=== PATIENT | male | born 1935 | race African-American/Black ===

== ENCOUNTER 2018-02-05 08:26 | Emergency (ER) | payer MEDICARE ==
[~2018-02-05] VITALS: Ht 180.3 cm; Wt 80.0 kg
[~2018-02-05 08:26] MED LIST: AMLO5TAB88 PO; BUPR100T6 PO; CLOP75TA33 PO; DULO30CA2 PO; GABA-531 PO; LOSA1TAB37 PO; MORP60TA6 PO; OXYC-100 PO; POTA20TA12 PO; ZINC SULFATE PO
[2018-02-05 09:17] LABS: BASOPHILS % 1.1 % (0.0-2.0); EOSINOPHILS % 6.8 % (0.0-5.0); HEMATOCRIT. 39.5 % (42.0-52.0); HEMOGLOBIN. 13.3 g/dL (14.0-18.0); LYMPHOCYTES % 21.9 % (20.0-50.0); MEAN CORPUSCULAR HEMOGLOBIN 30.1 pg (28.0-32.0); MEAN CORPUSCULAR VOLUME 89.8 fL (80.0-94.0); MEAN PLATELET VOLUME 7.5 fl (7.4-10.4); MONOCYTES % 6.3 % (2.0-8.0); NEUTROPHILS % 63.9 % (40.0-76.0); PLATELET 251 x1000/uL (130-400); RED CELL DISTRIBUTION WIDTH 18.6 % (11.6-14.6)
[2018-02-05 09:22] LABS: CHLORIDE 105 mEq/L (98-107)
[2018-02-05 09:23] LABS: INR 1.2; PROTHROMBIN TIME 12.4 sec (9.4-11.6)
[2018-02-05] MEDS ORDERED: FUROSEMIDE 40MG/4ML VIAL IVP ONE (10:15)
[2018-02-05 10:42] VITALS: BP 132/69
== END 2018-02-05 10:47 | disposition home or self-care (01) ==
LOC: ER 09:30
DX: E87.70 Fluid overload, unspecified (principal); N28.9 Disorder of kidney and ureter, unspecified; I25.10 Atherosclerotic heart disease of native coronary artery without angina pectoris; I10 Essential (primary) hypertension; Z87.891 Personal history of nicotine dependence; Z89.611 Acquired absence of right leg above knee; Z95.0 Presence of cardiac pacemaker; Z98.890 Other specified postprocedural states
CPT/HCPCS: 36415; 71045; 80053; 83605; 83690; 83880; 84484; 85025; 85610; 93005; 96374; 99285; J1940

== ENCOUNTER 2018-10-17 09:21 | Inpatient (IN) | payer MEDICARE, OTHER ==
[~2018-10-17] VITALS: Ht 180.3 cm; Wt 72.6 kg
[2018-10-17] MEDS ORDERED: METHYLPREDNISOLONE SOD SUCC 125 MG/2 ML VIAL IV STA (11:03)
[2018-10-17] MEDS ORDERED: SODIUM CHLORIDE 0.9% 1,000 ML IV ONE (11:03)
[2018-10-17] MEDS ORDERED: KETOROLAC 30MG/ML VIAL IV STA (11:03)
[2018-10-17] MEDS ORDERED: ONDANSETRON HCL 4MG/2ML INJ IV STA (11:03)
[2018-10-17] MEDS ORDERED: IPRATROPIUM/ALBUTEROL 0.5-3(2.5)MG/3ML NEB HHN ONE (11:15)
[2018-10-17] MEDS ORDERED: MORPHINE SULFATE 10 MG/ML CPJ IV ONE (11:15)
[2018-10-17] MEDS ORDERED: MAGNESIUM 2 G PREMIX 50 ML IV ONE (11:15)
[2018-10-17] MEDS ORDERED: LEVOFLOXACIN 750MG PREMIX 150 ML IV ONE (11:15)
[2018-10-17 12:24] LABS: BASOPHILS % 1.1 % (0.0-2.0); HEMATOCRIT. 42.6 % (42.0-52.0); HEMOGLOBIN. 14.2 g/dL (14.0-18.0); LYMPHOCYTES % 17.7 % (20.0-50.0); MEAN CORPUSCULAR VOLUME 90.1 fL (80.0-94.0); MEAN PLATELET VOLUME 8.5 fl (7.4-10.4); MONOCYTES % 10.8 % (2.0-8.0); NEUTROPHILS % 65.4 % (40.0-76.0); PLATELET 174 x1000/uL (130-400); RED BLOOD CELL COUNT 4.73 mill/uL (4.7-6.1); RED CELL DISTRIBUTION WIDTH 16.6 % (11.6-14.6)
[2018-10-17 12:27] LABS: CHLORIDE 107 mEq/L (98-107)
[2018-10-17 12:30] LABS: ETHANOL BLOOD < 10 mg/dL
[2018-10-17 12:46] LABS: D-DIMER 4.26 mg/L FEU (<0.50); INR 1.2; PARTIAL THROMBOPLASTIN TIME 32.3 sec (23.4-31.0); PROTHROMBIN TIME 11.6 sec (9.1-11.1)
[2018-10-17 13:02] LABS: CLARITY URINE CLEAR (CLEAR); COLOR URINE YELLOW (YELLOW); KETONES URINE NEGATIVE (NEGATIVE); LEUKOCYTE ESTERASE URINE NEGATIVE (NEGATIVE); NITRITE URINE NEGATIVE (NEGATIVE); OCCULT BLOOD URINE 1+ (NEGATIVE); PROTEIN URINE 1+ (NEGATIVE); SPECIFIC GRAVITY URINE 1.011 (1.005-1.030)
[2018-10-17 14:06] LABS: *AMPHETAMINES SCREEN URINE NEGATIVE (NEGATIVE)
[2018-10-17 14:07] LABS: *BARBITURATES SCREEN URINE NEGATIVE (NEGATIVE); *COCAINE SCREEN URINE NEGATIVE (NEGATIVE); CANNABINOID URINE SCREEN NEGATIVE (NEGATIVE); METHADONE URINE SCREEN NEGATIVE (NEGATIVE); OPIATES URINE SCREEN NEGATIVE (NEGATIVE); PHENCYCLIDINE URINE SCREEN NEGATIVE (NEGATIVE)
[2018-10-17 14:08] LABS: *BENZODIAZEPINES SCREEN URINE NEGATIVE (NEGATIVE)
[2018-10-17] MEDS ORDERED: IOHEXOL-350 100 ML BOTTLE ONE (16:45)
[2018-10-17] MEDS ORDERED: GUAIFENESIN/CODEINE 200-20MG/10ML UDC PO STA (18:41)
[2018-10-17 20:00] VITALS: BP 142/90
[2018-10-17] MEDS ORDERED: DIATR MEGLU/DIATRIZOATE SOLN 30ML PO SCH (20:15)
[2018-10-17 20:30] VITALS: BP 142/90
[2018-10-17] MEDS: LOSARTAN POTASSIUM 100 MG TABLET PO SCH (21:22)
[2018-10-17] MEDS ORDERED: LEVOFLOXACIN 500MG PREMIX 100 ML IV NR (21:30)
[2018-10-17] MEDS ORDERED: BENZONATATE 200MG CAPSULE PO SCH (22:00)
[2018-10-17] MEDS: BENZONATATE 200MG CAPSULE PO SCH (23:20)
[2018-10-17] MEDS: IPRATROPIUM/ALBUTEROL 0.5-3(2.5)MG/3ML NEB HHN SCH (23:49)
[2018-10-18] VITALS: BP 139/71
[2018-10-18] MEDS: IPRATROPIUM/ALBUTEROL 0.5-3(2.5)MG/3ML NEB HHN SCH ×5 (03:12→19:45)
[2018-10-18 04:00] VITALS: BP 121/72
[2018-10-18] MEDS: GUAIFENESIN/CODEINE 100-10MG/5ML UDC PO PRN (05:27)
[2018-10-18] MEDS: BENZONATATE 200MG CAPSULE PO SCH ×3 (05:28→22:35)
[2018-10-18 08:10] VITALS: BP 112/66
[2018-10-18] MEDS: FUROSEMIDE 40MG/4ML VIAL IVP SCH (09:00)
[2018-10-18] MEDS ORDERED: DIATR MEGLU/DIATRIZOATE SOLN 30ML PO NR (09:00)
[2018-10-18] MEDS: CLOPIDOGREL 75MG TABLET PO SCH (09:00)
[2018-10-18] MEDS: GABAPENTIN 300MG CAPSULE PO SCH ×2 (09:00→16:34)
[2018-10-18] MEDS: POTASSIUM CHLORIDE 20MEQ TABLET SR PO SCH (09:00)
[2018-10-18] MEDS: AMLODIPINE 5MG TABLET PO SCH (09:00)
[2018-10-18] MEDS ORDERED: AMLODIPINE 5MG TABLET PO SCH (09:00)
[2018-10-18] MEDS ORDERED: BUPROPION HCL 75 MG PO SCH (09:00)
[2018-10-18] MEDS ORDERED: CLOPIDOGREL 75MG TABLET PO SCH (09:00)
[2018-10-18] MEDS: BUPROPION HCL 100MG SR TABLET PO SCH (09:00)
[2018-10-18] MEDS: LOSARTAN POTASSIUM 100 MG TABLET PO SCH (09:00)
[2018-10-18] MEDS: HYDROCHLOROTHIAZIDE 25MG TABLET PO SCH (09:00)
[2018-10-18] MEDS ORDERED: GABAPENTIN 100MG CAPSULE PO SCH (09:00)
[2018-10-18] MEDS ORDERED: BUPROPION HCL 100MG SR TABLET PO SCH (09:00)
[2018-10-18] MEDS: ENOXAPARIN 40MG/0.4ML SYR SUBCUT SCH (09:00)
[2018-10-18] MEDS: DULOXETINE HCL 30MG DR CAPSULE PO SCH (09:00)
[2018-10-18] MEDS ORDERED: MORPHINE SULFATE 15MG TABLET SR PO SCH (09:15)
[2018-10-18] MEDS ORDERED: ACETAMINOPHEN 325MG TABLET PO PRN (09:15)
[2018-10-18 12:00] VITALS: BP 136/84
[2018-10-18] MEDS ORDERED: IOHEXOL-300 100 ML BOTTLE ONE (14:47)
[2018-10-18 16:00] VITALS: BP 134/75
[2018-10-18 20:00] VITALS: BP 129/73
[2018-10-18] MEDS: LEVOFLOXACIN 250MG PREMIX 50 ML IV SCH (21:44)
[2018-10-18] MEDS: MORPHINE SULFATE 30MG TABLET SR PO SCH (22:35)
[2018-10-19] VITALS: BP 143/92
[2018-10-19] MEDS: IPRATROPIUM/ALBUTEROL 0.5-3(2.5)MG/3ML NEB HHN SCH ×5 (00:15→15:37)
[2018-10-19] MEDS: GUAIFENESIN/CODEINE 100-10MG/5ML UDC PO PRN ×2 (00:31→12:02)
[2018-10-19 04:00] VITALS: BP 134/90
[2018-10-19] MEDS: BENZONATATE 200MG CAPSULE PO SCH ×3 (05:39→21:46)
[2018-10-19 08:00] VITALS: BP 143/88
[2018-10-19] MEDS: LOSARTAN POTASSIUM 100 MG TABLET PO SCH (09:16)
[2018-10-19] MEDS: FUROSEMIDE 40MG/4ML VIAL IVP SCH (09:16)
[2018-10-19] MEDS: ENOXAPARIN 40MG/0.4ML SYR SUBCUT SCH (09:16)
[2018-10-19] MEDS: CLOPIDOGREL 75MG TABLET PO SCH (09:16)
[2018-10-19] MEDS: AMLODIPINE 5MG TABLET PO SCH (09:16)
[2018-10-19] MEDS: BUPROPION HCL 100MG SR TABLET PO SCH (09:16)
[2018-10-19] MEDS: DULOXETINE HCL 30MG DR CAPSULE PO SCH (09:17)
[2018-10-19] MEDS: POTASSIUM CHLORIDE 20MEQ TABLET SR PO SCH (09:17)
[2018-10-19] MEDS: MORPHINE SULFATE 30MG TABLET SR PO SCH ×2 (09:17→21:47)
[2018-10-19] MEDS: HYDROCHLOROTHIAZIDE 25MG TABLET PO SCH (09:17)
[2018-10-19] MEDS: GABAPENTIN 300MG CAPSULE PO SCH ×2 (09:17→17:14)
[2018-10-19 12:00] VITALS: BP 142/84
[2018-10-19] MEDS: GUAIFENESIN 600MG ER TABLET PO SCH ×3 (12:02→23:59)
[2018-10-19 16:00] VITALS: BP 139/94
[2018-10-19] MEDS: LIDOCAINE 5% PATCH TOP SCH (17:16)
[2018-10-19 20:00] VITALS: BP 136/83
[2018-10-19] MEDS: LEVOFLOXACIN 250MG PREMIX 50 ML IV SCH (20:29)
[2018-10-19] MEDS: CARVEDILOL 3.125 MG TABLET PO SCH (21:47)
[2018-10-20] VITALS: BP 134/73
[2018-10-20] MEDS: IPRATROPIUM/ALBUTEROL 0.5-3(2.5)MG/3ML NEB HHN SCH ×5 (01:10→20:36)
[2018-10-20 03:58] VITALS: BP 120/72
[2018-10-20] MEDS: BENZONATATE 200MG CAPSULE PO SCH ×3 (05:15→21:38)
[2018-10-20] MEDS: GUAIFENESIN 600MG ER TABLET PO SCH ×3 (05:15→18:00)
[2018-10-20 08:00] VITALS: BP 147/66
[2018-10-20 08:05] LABS: BASOPHILS % 0.8 % (0.0-2.0); EOSINOPHILS % 4.3 % (0.0-5.0); HEMATOCRIT. 39.3 % (42.0-52.0); HEMOGLOBIN. 13.1 g/dL (14.0-18.0); MEAN CORPUSCULAR HEMOGLOBIN 30.1 pg (28.0-32.0); MEAN CORPUSCULAR VOLUME 90.4 fL (80.0-94.0); MEAN PLATELET VOLUME 8.4 fl (7.4-10.4); MONOCYTES % 6.2 % (2.0-8.0); NEUTROPHILS % 68.7 % (40.0-76.0); PLATELET 184 x1000/uL (130-400); RED BLOOD CELL COUNT 4.34 mill/uL (4.7-6.1); RED CELL DISTRIBUTION WIDTH 16.6 % (11.6-14.6)
[2018-10-20 08:30] LABS: CHLORIDE 101 mEq/L (98-107)
[2018-10-20] MEDS: DULOXETINE HCL 30MG DR CAPSULE PO SCH (08:36)
[2018-10-20] MEDS: CARVEDILOL 3.125 MG TABLET PO SCH ×2 (08:36→21:00)
[2018-10-20] MEDS: HYDROCHLOROTHIAZIDE 25MG TABLET PO SCH (08:36)
[2018-10-20] MEDS: POTASSIUM CHLORIDE 20MEQ TABLET SR PO SCH (08:36)
[2018-10-20] MEDS: CLOPIDOGREL 75MG TABLET PO SCH (08:36)
[2018-10-20] MEDS: FUROSEMIDE 40MG/4ML VIAL IVP SCH (08:36)
[2018-10-20] MEDS: LOSARTAN POTASSIUM 100 MG TABLET PO SCH (08:36)
[2018-10-20] MEDS: BUPROPION HCL 100MG SR TABLET PO SCH (08:36)
[2018-10-20] MEDS: AMLODIPINE 5MG TABLET PO SCH (08:36)
[2018-10-20] MEDS: MORPHINE SULFATE 30MG TABLET SR PO SCH ×2 (08:37→21:14)
[2018-10-20] MEDS: ENOXAPARIN 40MG/0.4ML SYR SUBCUT SCH (08:37)
[2018-10-20] MEDS: LIDOCAINE 5% PATCH TOP SCH (08:38)
[2018-10-20 08:40] LABS: HDL CHOLESTEROL 34 mg/dL (40-59); LDL CHOLESTEROL 112 mg/dL (5-100)
[2018-10-20] MEDS ORDERED: POTASSIUM CHLORIDE 20MEQ TABLET SR PO NR (11:00)
[2018-10-20] MEDS: GABAPENTIN 300MG CAPSULE PO SCH ×2 (11:05→17:45)
[2018-10-20] MEDS: FUROSEMIDE 20MG TABLET PO SCH ×2 (11:05→21:12)
[2018-10-20 12:00] VITALS: BP 131/61
[2018-10-20] MEDS: GUAIFENESIN/CODEINE 100-10MG/5ML UDC PO PRN (12:56)
[2018-10-20] MEDS ORDERED: ONDANSETRON HCL 4MG/2ML INJ IV PRN (13:45)
[2018-10-20 16:00] VITALS: BP 123/83
[2018-10-20 20:00] VITALS: BP 138/54
[2018-10-20] MEDS ORDERED: ATORVASTATIN CALCIUM 20MG TABLET PO SCH (21:00)
[2018-10-20] MEDS ORDERED: LEVOFLOXACIN 250MG TABLET PO SCH (21:00)
[2018-10-21] VITALS: BP 99/66
[2018-10-21] MEDS: IPRATROPIUM/ALBUTEROL 0.5-3(2.5)MG/3ML NEB HHN SCH ×5 (00:13→15:42)
[2018-10-21] MEDS: GUAIFENESIN 600MG ER TABLET PO SCH ×3 (00:20→13:01)
[2018-10-21 04:00] VITALS: BP 98/59
[2018-10-21] MEDS: BENZONATATE 200MG CAPSULE PO SCH ×2 (06:29→13:01)
[2018-10-21 06:55] LABS: BASOPHILS % 0.6 % (0.0-2.0); EOSINOPHILS % 3.5 % (0.0-5.0); HEMATOCRIT. 43.8 % (42.0-52.0); HEMOGLOBIN. 14.4 g/dL (14.0-18.0); LYMPHOCYTES % 20.1 % (20.0-50.0); MEAN CORPUSCULAR HEMOGLOBIN 29.4 pg (28.0-32.0); MEAN CORPUSCULAR VOLUME 89.5 fL (80.0-94.0); MEAN PLATELET VOLUME 8.2 fl (7.4-10.4); MONOCYTES % 6.4 % (2.0-8.0); NEUTROPHILS % 69.4 % (40.0-76.0); PLATELET 212 x1000/uL (130-400); RED CELL DISTRIBUTION WIDTH 16.1 % (11.6-14.6)
[2018-10-21 08:00] VITALS: BP 100/61
[2018-10-21] MEDS: LOSARTAN POTASSIUM 100 MG TABLET PO SCH (09:00)
[2018-10-21] MEDS: FUROSEMIDE 20MG TABLET PO SCH (09:00)
[2018-10-21] MEDS: AMLODIPINE 5MG TABLET PO SCH (09:00)
[2018-10-21] MEDS: HYDROCHLOROTHIAZIDE 25MG TABLET PO SCH (09:00)
[2018-10-21] MEDS: CARVEDILOL 3.125 MG TABLET PO SCH (09:00)
[2018-10-21] MEDS: ENOXAPARIN 40MG/0.4ML SYR SUBCUT SCH (09:00)
[2018-10-21] MEDS: BUPROPION HCL 100MG SR TABLET PO SCH (09:25)
[2018-10-21] MEDS: MORPHINE SULFATE 30MG TABLET SR PO SCH (09:25)
[2018-10-21] MEDS: CLOPIDOGREL 75MG TABLET PO SCH (09:25)
[2018-10-21] MEDS: POTASSIUM CHLORIDE 20MEQ TABLET SR PO SCH (09:25)
[2018-10-21] MEDS: GABAPENTIN 300MG CAPSULE PO SCH (09:26)
[2018-10-21] MEDS: DULOXETINE HCL 30MG DR CAPSULE PO SCH (09:26)
[2018-10-21 12:00] VITALS: BP 100/58
[2018-10-21 15:00] VITALS: BP 100/58
== END 2018-10-21 16:42 | disposition home or self-care (01) | DRG 293 ==
LOC: ER 12:56 → 8WST 14:02 → EDBEDREQ 14:20 → EDBEDREQTM 14:20 → ENRESERV 16:29
PROVIDERS: ADMIT Internal Medicine; ATTEND Internal Medicine
DX: I11.0 Hypertensive heart disease with heart failure (principal); I50.43 Acute on chronic combined systolic (congestive) and diastolic (congestive) heart failure; I42.9 Cardiomyopathy, unspecified; J44.9 Chronic obstructive pulmonary disease, unspecified; G54.6 Phantom limb syndrome with pain; F32.9 Major depressive disorder, single episode, unspecified; G89.4 Chronic pain syndrome; I25.10 Atherosclerotic heart disease of native coronary artery without angina pectoris; I25.5 Ischemic cardiomyopathy; K57.90 Diverticulosis of intestine, part unspecified, without perforation or abscess without bleeding; Z96.659 Presence of unspecified artificial knee joint; Z82.49 Family history of ischemic heart disease and other diseases of the circulatory system; Z79.02 Long term (current) use of antithrombotics/antiplatelets; Z86.73 Personal history of transient ischemic attack (TIA), and cerebral infarction without residual deficits; Z89.611 Acquired absence of right leg above knee; Z95.810 Presence of automatic (implantable) cardiac defibrillator; Z98.61 Coronary angioplasty status; Z87.891 Personal history of nicotine dependence
CPT/HCPCS: 36415; 71045; 71275; 74177; 80048; 80061; 80305; 83036; 83605; 83735; 83880; 84484; 85379; 93005; 93306; 94640; 96365; 96375; 97116; 97162; 97166; 99285; G0482; J1650; J1940; J1956; J2270; J2405; J2930; J3475; J7030; J7050; J7620; Q9963; Q9967

== ENCOUNTER 2018-10-28 11:49 | Inpatient (IN) | payer MEDICARE, OTHER ==
[~2018-10-28] VITALS: Ht 180.3 cm; Wt 81.2 kg
[2018-10-28] MEDS ORDERED: DILTIAZEM HCL 5MG/ML 5ML VIAL IV PRN (13:15)
[2018-10-28] MEDS ORDERED: DILTIAZEM HCL 125 MG in DEXT 5% WATER 100 ML IV PRN (13:15)
[2018-10-28] MEDS ORDERED: ASPIRIN 81MG TABLET PO ONE (13:15)
[2018-10-28 13:32] LABS: BASOPHILS % 0.9 % (0.0-2.0); HEMOGLOBIN. 15.2 g/dL (14.0-18.0); LYMPHOCYTES % 16.3 % (20.0-50.0); MEAN CORPUSCULAR HEMOGLOBIN 29.7 pg (28.0-32.0); MEAN CORPUSCULAR VOLUME 89.8 fL (80.0-94.0); MEAN PLATELET VOLUME 8.3 fl (7.4-10.4); MONOCYTES % 6.5 % (2.0-8.0); NEUTROPHILS % 73.3 % (40.0-76.0); PLATELET 214 x1000/uL (130-400); RED BLOOD CELL COUNT 5.13 mill/uL (4.7-6.1); RED CELL DISTRIBUTION WIDTH 16.3 % (11.6-14.6)
[2018-10-28 13:37] LABS: CHLORIDE 110 mEq/L (98-107)
[2018-10-28 14:22] LABS: T4 FREE 1.17 ng/dL (0.76-1.46)
[2018-10-28 17:46] LABS: INR 1.3; PARTIAL THROMBOPLASTIN TIME 31.3 sec (23.4-31.0); PROTHROMBIN TIME 13.5 sec (9.1-11.1)
[2018-10-28 21:30] VITALS: BP 99/77
[2018-10-28 22:00] VITALS: BP 99/77
[2018-10-28] MEDS ORDERED: ACETAMINOPHEN 325MG TABLET PO PRN (22:45)
[2018-10-28] MEDS: ENOXAPARIN 80MG/0.8ML SYR SUBCUT SCH (23:33)
[2018-10-28] MEDS: MORPHINE SULFATE 30MG TABLET SR PO SCH (23:34)
[2018-10-29] VITALS (8 sets, daily range): BP systolic 83–130; BP diastolic 51–74
[2018-10-29 07:12] LABS: BASOPHILS % 0.9 % (0.0-2.0); EOSINOPHILS % 4.4 % (0.0-5.0); HEMATOCRIT. 41.1 % (42.0-52.0); HEMOGLOBIN. 13.5 g/dL (14.0-18.0); LYMPHOCYTES % 28.4 % (20.0-50.0); MEAN CORPUSCULAR HEMOGLOBIN 29.4 pg (28.0-32.0); MEAN CORPUSCULAR VOLUME 89.8 fL (80.0-94.0); MEAN PLATELET VOLUME 8.3 fl (7.4-10.4); MONOCYTES % 7.6 % (2.0-8.0); NEUTROPHILS % 58.7 % (40.0-76.0); PLATELET 188 x1000/uL (130-400); RED BLOOD CELL COUNT 4.58 mill/uL (4.7-6.1); RED CELL DISTRIBUTION WIDTH 16.2 % (11.6-14.6)
[2018-10-29 07:55] LABS: CHLORIDE 110 mEq/L (98-107)
[2018-10-29] MEDS ORDERED: BUPROPION HCL 75 MG PO SCH (09:00)
[2018-10-29] MEDS: AMLODIPINE 5MG TABLET PO SCH (09:00)
[2018-10-29] MEDS ORDERED: MEDICATION NOT ON FORMULARY EA (Gabapentin 300 MG) PO SCH (09:00)
[2018-10-29] MEDS: CARVEDILOL 6.25 MG TABLET PO SCH ×2 (09:00→22:16)
[2018-10-29] MEDS: HYDROCHLOROTHIAZIDE 25MG TABLET PO SCH (09:00)
[2018-10-29] MEDS ORDERED: MEDICATION NOT ON FORMULARY EA (Losartan/Hydrochlorothiazide (Losartan-Hctz 100-25 Mg Ta PO SCH (09:00)
[2018-10-29] MEDS ORDERED: ENOXAPARIN 40MG/0.4ML SYR SUBCUT ONE (09:00)
[2018-10-29] MEDS ORDERED: MEDICATION NOT ON FORMULARY EA (Clopidogrel Bisulfate (Clopidogrel) 75 MG) PO SCH (09:00)
[2018-10-29] MEDS ORDERED: MEDICATION NOT ON FORMULARY EA (Amlodipine Besylate 5 MG) PO SCH (09:00)
[2018-10-29] MEDS ORDERED: ZINC SULFATE 220 MG PO SCH (09:00)
[2018-10-29] MEDS: LOSARTAN POTASSIUM 100 MG TABLET PO SCH (09:00)
[2018-10-29] MEDS: CLOPIDOGREL 75MG TABLET PO SCH (09:17)
[2018-10-29] MEDS: MORPHINE SULFATE 30MG TABLET SR PO SCH ×2 (09:18→22:18)
[2018-10-29] MEDS: DULOXETINE HCL 30MG DR CAPSULE PO SCH (09:19)
[2018-10-29] MEDS: ASPIRIN 81MG EC TABLET PO SCH (09:19)
[2018-10-29] MEDS: BUPROPION HCL 75MG TABLET PO SCH (09:19)
[2018-10-29] MEDS: GABAPENTIN 300MG CAPSULE PO SCH (09:19)
[2018-10-29] MEDS: ZINC SULFATE 220 MG ( 50 ) CAPSULE PO SCH (09:19)
[2018-10-29] MEDS ORDERED: POTASSIUM CHLORIDE 20MEQ TABLET SR PO SCH (10:45)
[2018-10-29] MEDS ORDERED: ONDANSETRON HCL 4MG/2ML INJ IV PRN (11:15)
[2018-10-29] MEDS: ENOXAPARIN 80MG/0.8ML SYR SUBCUT SCH ×2 (11:24→22:19)
[2018-10-29] MEDS: DEXT 5%/0.45% NACL KCL 20MEQ/L 1,000 ML IV SCH (12:59)
[2018-10-29] MEDS ORDERED: SODIUM CHLORIDE 0.9% 500 ML IV ONE (17:23)
[2018-10-29] MEDS ORDERED: MORPHINE SULFATE 60 MG PO SCH (21:00)
[2018-10-29] MEDS: ATORVASTATIN CALCIUM 10MG TABLET PO SCH (22:16)
[2018-10-30] VITALS (7 sets, daily range): BP systolic 86–119; BP diastolic 58–83
[2018-10-30] MEDS: CARVEDILOL 6.25 MG TABLET PO SCH ×2 (09:00→21:00)
[2018-10-30] MEDS: MORPHINE SULFATE 30MG TABLET SR PO SCH ×2 (09:00→21:51)
[2018-10-30] MEDS: LOSARTAN POTASSIUM 100 MG TABLET PO SCH (09:00)
[2018-10-30] MEDS: AMLODIPINE 5MG TABLET PO SCH (09:00)
[2018-10-30] MEDS: HYDROCHLOROTHIAZIDE 25MG TABLET PO SCH (09:00)
[2018-10-30] MEDS: CLOPIDOGREL 75MG TABLET PO SCH (09:16)
[2018-10-30] MEDS: GABAPENTIN 300MG CAPSULE PO SCH (09:16)
[2018-10-30] MEDS: DULOXETINE HCL 30MG DR CAPSULE PO SCH (09:17)
[2018-10-30] MEDS: ZINC SULFATE 220 MG ( 50 ) CAPSULE PO SCH (09:17)
[2018-10-30] MEDS: BUPROPION HCL 75MG TABLET PO SCH (09:17)
[2018-10-30] MEDS: ASPIRIN 81MG EC TABLET PO SCH (09:17)
[2018-10-30] MEDS: ENOXAPARIN 80MG/0.8ML SYR SUBCUT SCH ×2 (10:46→21:52)
[2018-10-30 13:27] LABS: EOSINOPHILS % 5.3 % (0.0-5.0); HEMOGLOBIN. 12.8 g/dL (14.0-18.0); LYMPHOCYTES % 19.8 % (20.0-50.0); MEAN CORPUSCULAR HEMOGLOBIN 29.7 pg (28.0-32.0); MEAN CORPUSCULAR VOLUME 90.7 fL (80.0-94.0); MEAN PLATELET VOLUME 7.7 fl (7.4-10.4); MONOCYTES % 6.2 % (2.0-8.0); NEUTROPHILS % 67.7 % (40.0-76.0); PLATELET 153 x1000/uL (130-400); RED CELL DISTRIBUTION WIDTH 16.4 % (11.6-14.6)
[2018-10-30 13:43] LABS: CHLORIDE 112 mEq/L (98-107)
[2018-10-30] MEDS: DEXT 5%/0.45% NACL KCL 20MEQ/L 1,000 ML IV SCH (15:33)
[2018-10-30] MEDS: ATORVASTATIN CALCIUM 10MG TABLET PO SCH (21:50)
[2018-10-31] VITALS: BP 103/76
[2018-10-31 04:00] VITALS: BP 123/75
[2018-10-31 08:00] VITALS: BP 122/75
[2018-10-31] MEDS: ASPIRIN 81MG EC TABLET PO SCH (09:24)
[2018-10-31] MEDS: GABAPENTIN 300MG CAPSULE PO SCH (09:24)
[2018-10-31] MEDS: AMLODIPINE 5MG TABLET PO SCH (09:25)
[2018-10-31] MEDS: HYDROCHLOROTHIAZIDE 25MG TABLET PO SCH (09:25)
[2018-10-31] MEDS: LOSARTAN POTASSIUM 100 MG TABLET PO SCH (09:25)
[2018-10-31] MEDS: CLOPIDOGREL 75MG TABLET PO SCH (09:25)
[2018-10-31] MEDS: DULOXETINE HCL 30MG DR CAPSULE PO SCH (09:25)
[2018-10-31] MEDS: BUPROPION HCL 75MG TABLET PO SCH (09:25)
[2018-10-31] MEDS: ZINC SULFATE 220 MG ( 50 ) CAPSULE PO SCH (09:25)
[2018-10-31] MEDS: CARVEDILOL 6.25 MG TABLET PO SCH (09:26)
[2018-10-31] MEDS: MORPHINE SULFATE 30MG TABLET SR PO SCH (09:26)
[2018-10-31] MEDS: ENOXAPARIN 80MG/0.8ML SYR SUBCUT SCH (11:00)
[2018-10-31 12:00] VITALS: BP 141/100
[2018-10-31 16:00] VITALS: BP 136/89
[2018-10-31] MEDS ORDERED: ENOXAPARIN 80MG/0.8ML SYR SUBCUT SCH (21:00)
== END 2018-10-31 17:48 | disposition home or self-care (01) | DRG 300 ==
LOC: ER 11:49 → 7WST 15:11 → EDBEDREQ 15:16 → EDBEDREQTM 15:16 → ENRESERV 18:12
PROVIDERS: ADMIT Internal Medicine; ATTEND Internal Medicine
DX: I73.9 Peripheral vascular disease, unspecified (principal); I48.4 Atypical atrial flutter; I47.2 Ventricular tachycardia; G89.4 Chronic pain syndrome; F32.9 Major depressive disorder, single episode, unspecified; G54.6 Phantom limb syndrome with pain; I48.91 Unspecified atrial fibrillation; I44.7 Left bundle-branch block, unspecified; I11.0 Hypertensive heart disease with heart failure; I25.10 Atherosclerotic heart disease of native coronary artery without angina pectoris; I25.5 Ischemic cardiomyopathy; Z86.73 Personal history of transient ischemic attack (TIA), and cerebral infarction without residual deficits; Z87.891 Personal history of nicotine dependence; Z79.01 Long term (current) use of anticoagulants; Z79.899 Other long term (current) drug therapy; Z89.611 Acquired absence of right leg above knee; Z95.0 Presence of cardiac pacemaker; I25.2 Old myocardial infarction
CPT/HCPCS: 36415; 71045; 74018; 80048; 80076; 82962; 83735; 84439; 84443; 84481; 84484; 87804; 93005; 96374; 99285; C1893; J1650; J2405; J7040

== ENCOUNTER 2018-11-11 06:10 | Inpatient (IN) | payer MEDICARE, OTHER ==
[~2018-11-11] VITALS: Ht 177.8 cm; Wt 79.8 kg
[2018-11-11] VITALS (11 sets, daily range): BP systolic 110–142; BP diastolic 61–84
[2018-11-11 07:33] LABS: HEMATOCRIT 46.8 % (42.0-52.0); HEMOGLOBIN 15.5 g/dL (14.0-18.0); MEAN CORPUSCULAR HEMOGLOBIN 29.6 pg (28.0-32.0); MEAN CORPUSCULAR VOLUME 89.4 fL (80.0-94.0); PLATELET 223 x1000/uL (130-400); RED BLOOD CELL COUNT 5.23 mill/uL (4.7-6.1); RED CELL DISTRIBUTION WIDTH 16.3 % (11.6-14.6)
[2018-11-11 07:39] LABS: INR 1.2; PROTHROMBIN TIME 11.9 sec (9.1-11.1)
[2018-11-11] MEDS ORDERED: GENTAMICIN SULF 40MG/ML 2ML VIAL ONE (09:09)
[2018-11-11] MEDS ORDERED: GENTAMICIN/NS IRRIGATION 500 ML IR ONE (09:10)
[2018-11-11] MEDS ORDERED: LIDOCAINE HCL 1% 20ML VIAL (Pyxis) INJ ONE (09:10)
[2018-11-11] MEDS ORDERED: IOHEXOL-300 100 ML BOTTLE ONE (09:10)
[2018-11-11] MEDS ORDERED: ALLO100T PO (09:25)
[2018-11-11] MEDS ORDERED: AMIO100T4 PO (09:25)
[2018-11-11] MEDS ORDERED: APIX5TAB PO (09:25)
[2018-11-11] MEDS ORDERED: GABA-529 PO (09:25)
[2018-11-11] MEDS ORDERED: PROPOFOL 200MG/20ML VIAL IV ONE (09:53)
[2018-11-11] MEDS ORDERED: MIDAZOLAM HCL 2 MG/2 ML VIAL ONE (09:53)
[2018-11-11] MEDS ORDERED: FENTANYL CITRATE/PF 50MCG/ML 2ML VIAL ONE (09:53)
[2018-11-11] MEDS ORDERED: GLYCOPYRROLATE 0.2 MG/ML 2ML VIAL ONE (09:53)
[2018-11-11] MEDS ORDERED: IODIXANOL 320MG/ML 100 ML BOTTLE IV ONE (09:55)
[2018-11-11] MEDS ORDERED: SUCCINYLCHOLINE CHLORIDE 200MG/10ML IV ONE (10:04)
[2018-11-11] MEDS ORDERED: ONDANSETRON HCL 4MG/2ML INJ ONE (10:04)
[2018-11-11] MEDS ORDERED: LIDOCAINE HCL/PF 1% 10 MG/ML 5ML VIAL ONE (10:04)
[2018-11-11] MEDS ORDERED: METOCLOPRAMIDE HCL 10MG/2ML VIAL ONE (10:05)
[2018-11-11] MEDS ORDERED: HYDROMORPHONE HCL/PF 2MG/ML CPJ IV PRN (13:00)
[2018-11-11] MEDS ORDERED: MEPERIDINE HCL/PF 25MG/ML CPJ IV PRN (13:00)
[2018-11-11] MEDS ORDERED: ONDANSETRON HCL 4MG/2ML INJ IV PRN (13:00)
[2018-11-11] MEDS ORDERED: NITROGLYCERIN 50MCG/ML 10ML VIAL (CATH LAB) IV ONE (15:50)
[2018-11-11] MEDS ORDERED: NICARDIPINE 100MCG/ML 10ML VIAL (CATH LAB) IV ONE (15:50)
[2018-11-11] MEDS: APIXABAN 5 MG TABLET PO SCH (17:36)
[2018-11-11] MEDS: SODIUM CHLORIDE 0.9% 1,000 ML IV NR (17:36)
[2018-11-11] MEDS: GABAPENTIN 100MG CAPSULE PO SCH ×2 (17:36→21:11)
[2018-11-11] MEDS: HYDROCODONE/ACETAMINOPHEN 5/325MG TABLET PO PRN (17:39)
[2018-11-11] MEDS: AMIODARONE HCL 200 MG TABLET PO SCH (21:11)
[2018-11-12] VITALS (12 sets, daily range): BP systolic 111–142; BP diastolic 69–87
[2018-11-12] MEDS: HYDROCODONE/ACETAMINOPHEN 5/325MG TABLET PO PRN ×3 (01:40→15:54)
[2018-11-12] MEDS: GABAPENTIN 100MG CAPSULE PO SCH ×3 (05:42→21:30)
[2018-11-12 07:13] LABS: BASOPHILS % 0.6 % (0.0-2.0); EOSINOPHILS % 5.8 % (0.0-5.0); HEMATOCRIT. 38.2 % (42.0-52.0); HEMOGLOBIN. 12.6 g/dL (14.0-18.0); LYMPHOCYTES % 15.9 % (20.0-50.0); MEAN CORPUSCULAR HEMOGLOBIN 29.5 pg (28.0-32.0); MEAN CORPUSCULAR VOLUME 89.4 fL (80.0-94.0); MEAN PLATELET VOLUME 8.1 fl (7.4-10.4); MONOCYTES % 7.8 % (2.0-8.0); NEUTROPHILS % 69.9 % (40.0-76.0); PLATELET 158 x1000/uL (130-400); RED BLOOD CELL COUNT 4.27 mill/uL (4.7-6.1); RED CELL DISTRIBUTION WIDTH 15.6 % (11.6-14.6)
[2018-11-12] MEDS: AMLODIPINE 5MG TABLET PO SCH (07:58)
[2018-11-12] MEDS: LOSARTAN POTASSIUM 100 MG TABLET PO SCH (08:00)
[2018-11-12] MEDS: AMIODARONE HCL 200 MG TABLET PO SCH ×2 (08:00→21:31)
[2018-11-12] MEDS: APIXABAN 5 MG TABLET PO SCH ×2 (08:00→16:51)
[2018-11-12] MEDS: BUPROPION HCL 100MG SR TABLET PO SCH (08:00)
[2018-11-12] MEDS: ALLOPURINOL 100 MG TABLET PO SCH (08:01)
[2018-11-12 08:35] LABS: CHLORIDE 108 mEq/L (98-107)
[2018-11-12] MEDS ORDERED: HYDROCHLOROTHIAZIDE 25MG TABLET PO SCH (09:00)
[2018-11-12] MEDS: SODIUM CHLORIDE 0.9% 1,000 ML IV NR (12:53)
[2018-11-12] MEDS: GUAIFENESIN/CODEINE 100-10MG/5ML UDC PO PRN (13:48)
[2018-11-12] MEDS: CARVEDILOL 3.125 MG TABLET PO SCH (21:31)
[2018-11-13] VITALS (12 sets, daily range): BP systolic 98–164; BP diastolic 51–86
[2018-11-13] MEDS: HYDROCODONE/ACETAMINOPHEN 5/325MG TABLET PO PRN ×3 (00:29→18:21)
[2018-11-13] MEDS: GABAPENTIN 100MG CAPSULE PO SCH ×3 (05:19→21:09)
[2018-11-13 07:29] LABS: BASOPHILS % 0.4 % (0.0-2.0); HEMATOCRIT. 36.8 % (42.0-52.0); HEMOGLOBIN. 12.2 g/dL (14.0-18.0); LYMPHOCYTES % 14.8 % (20.0-50.0); MEAN CORPUSCULAR HEMOGLOBIN 30.1 pg (28.0-32.0); MEAN CORPUSCULAR VOLUME 90.4 fL (80.0-94.0); MONOCYTES % 7.6 % (2.0-8.0); NEUTROPHILS % 71.2 % (40.0-76.0); PLATELET 143 x1000/uL (130-400); RED BLOOD CELL COUNT 4.07 mill/uL (4.7-6.1); RED CELL DISTRIBUTION WIDTH 15.6 % (11.6-14.6)
[2018-11-13 07:37] LABS: CHLORIDE 104 mEq/L (98-107)
[2018-11-13] MEDS: APIXABAN 5 MG TABLET PO SCH ×2 (08:49→17:27)
[2018-11-13] MEDS: FUROSEMIDE 20MG TABLET PO SCH (08:50)
[2018-11-13] MEDS: LOSARTAN POTASSIUM 100 MG TABLET PO SCH (08:50)
[2018-11-13] MEDS: AMLODIPINE 5MG TABLET PO SCH (08:50)
[2018-11-13] MEDS: ALLOPURINOL 100 MG TABLET PO SCH (08:50)
[2018-11-13] MEDS: BUPROPION HCL 100MG SR TABLET PO SCH (08:50)
[2018-11-13] MEDS: AMIODARONE HCL 200 MG TABLET PO SCH ×2 (08:50→21:09)
[2018-11-13] MEDS: CARVEDILOL 3.125 MG TABLET PO SCH ×2 (08:50→21:10)
[2018-11-13 17:05] LABS: T4 FREE 1.14 ng/dL (0.76-1.46)
[2018-11-13 17:18] LABS: FOLIC ACID (FOLATE) SERUM 6.9 ng/mL (>5.38)
[2018-11-14] VITALS (12 sets, daily range): BP systolic 103–131; BP diastolic 55–85
[2018-11-14] MEDS: HYDROCODONE/ACETAMINOPHEN 5/325MG TABLET PO PRN ×2 (00:38→21:53)
[2018-11-14] MEDS: GABAPENTIN 100MG CAPSULE PO SCH ×3 (05:50→21:52)
[2018-11-14] MEDS: CARVEDILOL 3.125 MG TABLET PO SCH ×2 (08:59→21:53)
[2018-11-14] MEDS: LOSARTAN POTASSIUM 100 MG TABLET PO SCH (08:59)
[2018-11-14] MEDS: BUPROPION HCL 100MG SR TABLET PO SCH (08:59)
[2018-11-14] MEDS: AMIODARONE HCL 200 MG TABLET PO SCH ×2 (08:59→21:52)
[2018-11-14] MEDS: AMLODIPINE 5MG TABLET PO SCH (08:59)
[2018-11-14] MEDS: FUROSEMIDE 20MG TABLET PO SCH (08:59)
[2018-11-14] MEDS: ALLOPURINOL 100 MG TABLET PO SCH (08:59)
[2018-11-14] MEDS: APIXABAN 5 MG TABLET PO SCH ×2 (08:59→17:45)
[2018-11-14 16:04] LABS: HEMATOCRIT 37.6 % (42.0-52.0); HEMOGLOBIN 12.5 g/dL (14.0-18.0); MEAN CORPUSCULAR HEMOGLOBIN 30.1 pg (28.0-32.0); MEAN CORPUSCULAR VOLUME 90.4 fL (80.0-94.0); PLATELET 164 x1000/uL (130-400); RED BLOOD CELL COUNT 4.16 mill/uL (4.7-6.1); RED CELL DISTRIBUTION WIDTH 15.7 % (11.6-14.6)
[2018-11-15] VITALS (7 sets, daily range): BP systolic 121–140; BP diastolic 67–84
[2018-11-15] MEDS: GABAPENTIN 100MG CAPSULE PO SCH (06:36)
[2018-11-15 07:56] LABS: BASOPHILS % 0.6 % (0.0-2.0); EOSINOPHILS % 5.8 % (0.0-5.0); HEMATOCRIT. 39.3 % (42.0-52.0); HEMOGLOBIN. 13.1 g/dL (14.0-18.0); LYMPHOCYTES % 16.6 % (20.0-50.0); MEAN CORPUSCULAR HEMOGLOBIN 30.8 pg (28.0-32.0); MEAN CORPUSCULAR VOLUME 92.1 fL (80.0-94.0); MEAN PLATELET VOLUME 8.5 fl (7.4-10.4); MONOCYTES % 7.8 % (2.0-8.0); NEUTROPHILS % 69.2 % (40.0-76.0); PLATELET 151 x1000/uL (130-400); RED BLOOD CELL COUNT 4.26 mill/uL (4.7-6.1); RED CELL DISTRIBUTION WIDTH 16.1 % (11.6-14.6)
[2018-11-15] MEDS: BUPROPION HCL 100MG SR TABLET PO SCH (08:04)
[2018-11-15] MEDS: LOSARTAN POTASSIUM 100 MG TABLET PO SCH (08:04)
[2018-11-15] MEDS: AMIODARONE HCL 200 MG TABLET PO SCH (08:05)
[2018-11-15] MEDS: ALLOPURINOL 100 MG TABLET PO SCH (08:05)
[2018-11-15] MEDS: CARVEDILOL 3.125 MG TABLET PO SCH (08:05)
[2018-11-15] MEDS: FUROSEMIDE 20MG TABLET PO SCH (08:05)
[2018-11-15] MEDS: AMLODIPINE 5MG TABLET PO SCH (08:05)
[2018-11-15] MEDS: APIXABAN 5 MG TABLET PO SCH (08:06)
[2018-11-15 08:39] LABS: CHLORIDE 102 mEq/L (98-107)
[2018-11-15] MEDS: HYDROCODONE/ACETAMINOPHEN 5/325MG TABLET PO PRN (08:42)
[2018-11-15] MEDS: GUAIFENESIN/CODEINE 100-10MG/5ML UDC PO PRN (08:44)
[2018-11-15] MEDS ORDERED: LACTULOSE 20G/30ML UDC PO SCH (14:00)
== END 2018-11-15 11:40 | DRG 224 ==
LOC: OR 06:10 → 3WST 06:11
PROVIDERS: ADMIT Internal Medicine Clinical Cardiac Electrophysiology; ATTEND Internal Medicine Clinical Cardiac Electrophysiology
PROC: 4A023N6 Measurement of Cardiac Sampling and Pressure, Right Heart, Percutaneous Approach (ICD-10-PCS; principal; 2018-11-11)
PROC: 0JH609Z Insertion of Cardiac Resynchronization Defibrillator Pulse Generator into Chest Subcutaneous Tissue and Fascia, Open Approach (ICD-10-PCS; 2018-11-11)
PROC: 02HK3KZ Insertion of Defibrillator Lead into Right Ventricle, Percutaneous Approach (ICD-10-PCS; 2018-11-11)
PROC: 02HL3KZ Insertion of Defibrillator Lead into Left Ventricle, Percutaneous Approach (ICD-10-PCS; 2018-11-11)
PROC: 0JPT0PZ Removal of Cardiac Rhythm Related Device from Trunk Subcutaneous Tissue and Fascia, Open Approach (ICD-10-PCS; 2018-11-11)
PROC: B51 Imaging, Veins, Fluoroscopy (ICD-10-PCS; 2018-11-11)
PROC: B5171ZZ Fluoroscopy of Left Subclavian Vein using Low Osmolar Contrast (ICD-10-PCS; 2018-11-11)
DX: I44.2 Atrioventricular block, complete (principal); I50.23 Acute on chronic systolic (congestive) heart failure; G93.40 Encephalopathy, unspecified; I49.5 Sick sinus syndrome; I25.10 Atherosclerotic heart disease of native coronary artery without angina pectoris; I25.5 Ischemic cardiomyopathy; I11.0 Hypertensive heart disease with heart failure; J44.9 Chronic obstructive pulmonary disease, unspecified; E78.5 Hyperlipidemia, unspecified; I44.7 Left bundle-branch block, unspecified; G54.6 Phantom limb syndrome with pain; I48.91 Unspecified atrial fibrillation; D64.9 Anemia, unspecified; E78.00 Pure hypercholesterolemia, unspecified; F32.9 Major depressive disorder, single episode, unspecified; I73.9 Peripheral vascular disease, unspecified; M10.9 Gout, unspecified; Z95.0 Presence of cardiac pacemaker; Z86.73 Personal history of transient ischemic attack (TIA), and cerebral infarction without residual deficits; Z87.891 Personal history of nicotine dependence; Z89.611 Acquired absence of right leg above knee; Z95.5 Presence of coronary angioplasty implant and graft; Z79.899 Other long term (current) drug therapy; W18.39XA Other fall on same level, initial encounter; Y93.89 Activity, other specified; Y92.89 Other specified places as the place of occurrence of the external cause; Y99.8 Other external cause status
CPT/HCPCS: 33225; 33233; 33249; 36415; 71045; 73560; 75822; 80048; 82140; 82607; 82746; 83036; 83735; 84439; 84443; 84481; 85027; 92523; 93005; 93451; 93641; 97116; 97163; 97166; 97530; 97535; A4565; C1769; C1882; C1887; C1892; C1893; C1899; C1900; J0330; J1580; J1644; J2250; J2405; J2704; J2765; J3010; J3490; J7040; Q9967

== ENCOUNTER 2018-11-15 11:35 | Inpatient (IN) | payer MEDICARE, OTHER ==
[~2018-11-15] VITALS: Ht 180.3 cm; Wt 74.8 kg
[2018-11-15 11:35] VITALS: BP 112/72
[~2018-11-15 11:35] MED LIST changes: +ALLO100T PO; +AMIO100T4 PO; +APIX5TAB PO; -CLOP75TA33 PO; +GABA-529 PO; -MORP60TA6 PO; -OXYC-100 PO; -POTA20TA12 PO; -ZINC SULFATE PO
[2018-11-15] MEDS ORDERED: ACETAMINOPHEN 325MG TABLET PO PRN (13:45)
[2018-11-15 15:46] VITALS: BP 112/72
[2018-11-15] MEDS: APIXABAN 5 MG TABLET PO SCH (17:12)
[2018-11-15 17:42] LABS: PHOSPHORUS 3.4 mg/dL (2.5-4.9)
[2018-11-15 20:00] VITALS: BP 143/83
[2018-11-15] MEDS: CARVEDILOL 3.125 MG TABLET PO SCH (20:28)
[2018-11-15] MEDS: HYDROCODONE/ACETAMINOPHEN 5/325MG TABLET PO PRN (20:28)
[2018-11-15] MEDS: GABAPENTIN 100MG CAPSULE PO SCH (21:11)
[2018-11-16] MEDS: GABAPENTIN 100MG CAPSULE PO SCH ×3 (05:42→21:25)
[2018-11-16 08:30] VITALS: BP 123/72
[2018-11-16] MEDS ORDERED: AMIODARONE HCL 200 MG TABLET PO SCH (09:00)
[2018-11-16] MEDS: LOSARTAN POTASSIUM 100 MG TABLET PO SCH (09:15)
[2018-11-16] MEDS: ALLOPURINOL 100 MG TABLET PO SCH (09:15)
[2018-11-16] MEDS: APIXABAN 5 MG TABLET PO SCH ×2 (09:15→17:54)
[2018-11-16] MEDS: BUPROPION HCL 150MG SR TABLET PO SCH (09:15)
[2018-11-16] MEDS: AMIODARONE HCL 200 MG TABLET PO SCH (09:16)
[2018-11-16] MEDS: AMLODIPINE 5MG TABLET PO SCH (09:16)
[2018-11-16] MEDS: CARVEDILOL 3.125 MG TABLET PO SCH ×2 (09:16→21:00)
[2018-11-16] MEDS: FUROSEMIDE 20MG TABLET PO SCH (09:20)
[2018-11-16 15:49] LABS: BASOPHILS % 0.4 % (0.0-2.0); EOSINOPHILS % 7.2 % (0.0-5.0); HEMATOCRIT. 38.3 % (42.0-52.0); HEMOGLOBIN. 12.6 g/dL (14.0-18.0); LYMPHOCYTES % 16.5 % (20.0-50.0); MEAN CORPUSCULAR HEMOGLOBIN 29.8 pg (28.0-32.0); MEAN CORPUSCULAR VOLUME 90.7 fL (80.0-94.0); MONOCYTES % 7.6 % (2.0-8.0); NEUTROPHILS % 68.3 % (40.0-76.0); PLATELET 179 x1000/uL (130-400); RED BLOOD CELL COUNT 4.23 mill/uL (4.7-6.1); RED CELL DISTRIBUTION WIDTH 15.8 % (11.6-14.6)
[2018-11-16 15:57] LABS: CHLORIDE 104 mEq/L (98-107)
[2018-11-16 20:00] VITALS: BP 123/70
[2018-11-16] MEDS: GUAIFENESIN/CODEINE 100-10MG/5ML UDC PO PRN (20:05)
[2018-11-17] MEDS: GABAPENTIN 100MG CAPSULE PO SCH ×3 (05:31→22:39)
[2018-11-17 07:18] LABS: BASOPHILS % 0.7 % (0.0-2.0); EOSINOPHILS % 6.9 % (0.0-5.0); HEMATOCRIT. 34.5 % (42.0-52.0); HEMOGLOBIN. 11.2 g/dL (14.0-18.0); LYMPHOCYTES % 19.5 % (20.0-50.0); MEAN CORPUSCULAR HEMOGLOBIN 29.6 pg (28.0-32.0); MEAN CORPUSCULAR VOLUME 91.4 fL (80.0-94.0); MEAN PLATELET VOLUME 8.3 fl (7.4-10.4); MONOCYTES % 7.9 % (2.0-8.0); PLATELET 170 x1000/uL (130-400); RED BLOOD CELL COUNT 3.78 mill/uL (4.7-6.1); RED CELL DISTRIBUTION WIDTH 15.6 % (11.6-14.6)
[2018-11-17 07:25] LABS: CHLORIDE 104 mEq/L (98-107)
[2018-11-17 07:32] LABS: PROSTRATE SPECIFIC AG TOTAL 0.47 ng/mL (0.0-4.0)
[2018-11-17 07:42] LABS: PHOSPHORUS 3.1 mg/dL (2.5-4.9)
[2018-11-17 07:44] LABS: TOTAL IRON BINDING CAPACITY 234 ug/dL (250-450)
[2018-11-17 08:00] VITALS: BP 118/61
[2018-11-17 08:07] LABS: FOLIC ACID (FOLATE) SERUM 5.8 ng/mL (>5.38)
[2018-11-17] MEDS: AMLODIPINE 5MG TABLET PO SCH (09:00)
[2018-11-17] MEDS: CARVEDILOL 3.125 MG TABLET PO SCH ×2 (09:00→21:00)
[2018-11-17] MEDS: LOSARTAN POTASSIUM 100 MG TABLET PO SCH (09:00)
[2018-11-17] MEDS: BUPROPION HCL 150MG SR TABLET PO SCH (09:34)
[2018-11-17] MEDS: APIXABAN 5 MG TABLET PO SCH ×2 (09:35→17:40)
[2018-11-17] MEDS: ALLOPURINOL 100 MG TABLET PO SCH (09:35)
[2018-11-17] MEDS: FUROSEMIDE 20MG TABLET PO SCH (09:35)
[2018-11-17] MEDS: AMIODARONE HCL 200 MG TABLET PO SCH (09:35)
[2018-11-17] MEDS: GUAIFENESIN/CODEINE 100-10MG/5ML UDC PO PRN (12:11)
[2018-11-17] MEDS: HYDROCODONE/ACETAMINOPHEN 5/325MG TABLET PO PRN ×2 (19:54→22:48)
[2018-11-17 20:00] VITALS: BP 129/73
[2018-11-18] MEDS: GABAPENTIN 100MG CAPSULE PO SCH ×3 (05:58→21:32)
[2018-11-18 08:00] VITALS: BP 118/71
[2018-11-18] MEDS: BUPROPION HCL 150MG SR TABLET PO SCH (09:17)
[2018-11-18] MEDS: CARVEDILOL 3.125 MG TABLET PO SCH ×2 (09:17→21:33)
[2018-11-18] MEDS: APIXABAN 5 MG TABLET PO SCH ×2 (09:18→17:37)
[2018-11-18] MEDS: AMIODARONE HCL 200 MG TABLET PO SCH (09:19)
[2018-11-18] MEDS: ALLOPURINOL 100 MG TABLET PO SCH (09:20)
[2018-11-18] MEDS: FUROSEMIDE 20MG TABLET PO SCH (09:20)
[2018-11-18] MEDS: LOSARTAN POTASSIUM 25 MG TABLET PO SCH (09:22)
[2018-11-18] MEDS: AMLODIPINE 2.5MG TABLET PO SCH (09:22)
[2018-11-18 20:00] VITALS: BP 142/73
[2018-11-18] MEDS: GUAIFENESIN/CODEINE 100-10MG/5ML UDC PO PRN (21:32)
[2018-11-19] MEDS: GABAPENTIN 100MG CAPSULE PO SCH ×3 (06:39→23:16)
[2018-11-19 07:05] LABS: BASOPHILS % 0.8 % (0.0-2.0); EOSINOPHILS % 5.9 % (0.0-5.0); HEMATOCRIT. 34.1 % (42.0-52.0); HEMOGLOBIN. 11.3 g/dL (14.0-18.0); LYMPHOCYTES % 18.7 % (20.0-50.0); MEAN CORPUSCULAR HEMOGLOBIN 30.3 pg (28.0-32.0); MEAN CORPUSCULAR VOLUME 91.2 fL (80.0-94.0); MEAN PLATELET VOLUME 7.8 fl (7.4-10.4); MONOCYTES % 7.3 % (2.0-8.0); NEUTROPHILS % 67.3 % (40.0-76.0); PLATELET 183 x1000/uL (130-400); RED BLOOD CELL COUNT 3.74 mill/uL (4.7-6.1); RED CELL DISTRIBUTION WIDTH 15.6 % (11.6-14.6)
[2018-11-19 08:05] VITALS: BP 128/71
[2018-11-19] MEDS: APIXABAN 5 MG TABLET PO SCH ×2 (08:52→17:29)
[2018-11-19] MEDS: ALLOPURINOL 100 MG TABLET PO SCH (08:52)
[2018-11-19] MEDS: LOSARTAN POTASSIUM 25 MG TABLET PO SCH (08:53)
[2018-11-19] MEDS: FUROSEMIDE 20MG TABLET PO SCH (08:53)
[2018-11-19] MEDS: BUPROPION HCL 150MG SR TABLET PO SCH (08:53)
[2018-11-19] MEDS: CARVEDILOL 3.125 MG TABLET PO SCH ×2 (08:53→20:25)
[2018-11-19] MEDS: AMIODARONE HCL 200 MG TABLET PO SCH (08:53)
[2018-11-19] MEDS: AMLODIPINE 2.5MG TABLET PO SCH (08:53)
[2018-11-19 08:59] LABS: CHLORIDE 109 mEq/L (98-107)
[2018-11-19] MEDS: HYDROCODONE/ACETAMINOPHEN 5/325MG TABLET PO PRN (19:33)
[2018-11-19] MEDS: GUAIFENESIN/CODEINE 100-10MG/5ML UDC PO PRN (19:51)
[2018-11-19 20:00] VITALS: BP 130/53
[2018-11-20] MEDS: GABAPENTIN 100MG CAPSULE PO SCH ×3 (06:32→21:01)
[2018-11-20 08:25] VITALS: BP 124/67
[2018-11-20] MEDS: AMLODIPINE 2.5MG TABLET PO SCH (08:53)
[2018-11-20] MEDS: APIXABAN 5 MG TABLET PO SCH ×2 (08:53→17:26)
[2018-11-20] MEDS: FUROSEMIDE 20MG TABLET PO SCH (08:53)
[2018-11-20] MEDS: ALLOPURINOL 100 MG TABLET PO SCH (08:53)
[2018-11-20] MEDS: LOSARTAN POTASSIUM 25 MG TABLET PO SCH (08:53)
[2018-11-20] MEDS: BUPROPION HCL 150MG SR TABLET PO SCH (08:53)
[2018-11-20] MEDS: CARVEDILOL 3.125 MG TABLET PO SCH ×2 (08:53→21:01)
[2018-11-20] MEDS: AMIODARONE HCL 200 MG TABLET PO SCH (08:53)
[2018-11-20] MEDS ORDERED: HYDROCODONE/ACETAMINOPHEN 10/325MG TABLET PO PRN (12:15)
[2018-11-20] MEDS: LIDOCAINE 5% PATCH TOP SCH (13:42)
[2018-11-20] MEDS: METHYL SALICYLATE/MENTHOL CREAM 85GM TOP SCH ×2 (15:31→21:01)
[2018-11-20 17:08] LABS: 25-HYDROXY VITAMIN D3 15 ng/mL (.)
[2018-11-20 20:00] VITALS: BP 136/76
[2018-11-21] MEDS: GUAIFENESIN/CODEINE 100-10MG/5ML UDC PO PRN (00:43)
[2018-11-21] MEDS: METHYL SALICYLATE/MENTHOL CREAM 85GM TOP SCH ×4 (05:30→20:26)
[2018-11-21] MEDS: GABAPENTIN 100MG CAPSULE PO SCH ×3 (05:57→21:43)
[2018-11-21 08:14] VITALS: BP 115/74
[2018-11-21] MEDS ORDERED: ERGOCALCIFEROL 50000UNITS CAPSULE PO SCH (09:00)
[2018-11-21] MEDS: FUROSEMIDE 20MG TABLET PO SCH (10:25)
[2018-11-21] MEDS: ALLOPURINOL 100 MG TABLET PO SCH (10:26)
[2018-11-21] MEDS: BUPROPION HCL 150MG SR TABLET PO SCH (10:26)
[2018-11-21] MEDS: APIXABAN 5 MG TABLET PO SCH ×2 (10:26→17:00)
[2018-11-21] MEDS: AMIODARONE HCL 200 MG TABLET PO SCH (10:27)
[2018-11-21] MEDS: LOSARTAN POTASSIUM 25 MG TABLET PO SCH (10:31)
[2018-11-21] MEDS: CARVEDILOL 3.125 MG TABLET PO SCH ×2 (10:31→20:26)
[2018-11-21] MEDS: LIDOCAINE 5% PATCH TOP SCH ×2 (10:32→10:40)
[2018-11-21] MEDS: AMLODIPINE 2.5MG TABLET PO SCH (10:33)
[2018-11-21 20:00] VITALS: BP 140/70
[2018-11-22] MEDS: METHYL SALICYLATE/MENTHOL CREAM 85GM TOP SCH ×4 (01:20→21:17)
[2018-11-22] MEDS: GABAPENTIN 100MG CAPSULE PO SCH ×3 (05:27→21:16)
[2018-11-22 08:21] VITALS: BP 116/67
[2018-11-22] MEDS: AMIODARONE HCL 200 MG TABLET PO SCH (09:16)
[2018-11-22] MEDS: ALLOPURINOL 100 MG TABLET PO SCH (09:16)
[2018-11-22] MEDS: LOSARTAN POTASSIUM 25 MG TABLET PO SCH (09:16)
[2018-11-22] MEDS: APIXABAN 5 MG TABLET PO SCH ×2 (09:16→17:37)
[2018-11-22] MEDS: GUAIFENESIN/CODEINE 100-10MG/5ML UDC PO PRN (09:16)
[2018-11-22] MEDS: BUPROPION HCL 150MG SR TABLET PO SCH (09:16)
[2018-11-22] MEDS: FUROSEMIDE 20MG TABLET PO SCH (09:16)
[2018-11-22] MEDS: CARVEDILOL 3.125 MG TABLET PO SCH ×2 (09:16→21:16)
[2018-11-22] MEDS: AMLODIPINE 2.5MG TABLET PO SCH (09:18)
[2018-11-22] MEDS ORDERED: BISACODYL 5MG TABLET PO PRN (12:00)
[2018-11-22 20:00] VITALS: BP 141/87
[2018-11-23] MEDS: GABAPENTIN 100MG CAPSULE PO SCH ×3 (06:07→21:00)
[2018-11-23] MEDS: METHYL SALICYLATE/MENTHOL CREAM 85GM TOP SCH ×4 (06:08→20:00)
[2018-11-23 07:09] LABS: CHLORIDE 106 mEq/L (98-107)
[2018-11-23 07:16] LABS: BASOPHILS % 0.7 % (0.0-2.0); EOSINOPHILS % 6.1 % (0.0-5.0); HEMATOCRIT. 35.8 % (42.0-52.0); HEMOGLOBIN. 11.9 g/dL (14.0-18.0); LYMPHOCYTES % 27.3 % (20.0-50.0); MEAN CORPUSCULAR HEMOGLOBIN 30.3 pg (28.0-32.0); MEAN PLATELET VOLUME 7.8 fl (7.4-10.4); MONOCYTES % 8.5 % (2.0-8.0); NEUTROPHILS % 57.4 % (40.0-76.0); PLATELET 217 x1000/uL (130-400); RED BLOOD CELL COUNT 3.93 mill/uL (4.7-6.1); RED CELL DISTRIBUTION WIDTH 15.8 % (11.6-14.6)
[2018-11-23 08:00] VITALS: BP 149/81
[2018-11-23] MEDS: ALLOPURINOL 100 MG TABLET PO SCH (09:25)
[2018-11-23] MEDS: AMLODIPINE 2.5MG TABLET PO SCH (09:25)
[2018-11-23] MEDS: LOSARTAN POTASSIUM 25 MG TABLET PO SCH (09:25)
[2018-11-23] MEDS: CARVEDILOL 3.125 MG TABLET PO SCH ×2 (09:26→21:00)
[2018-11-23] MEDS: FUROSEMIDE 20MG TABLET PO SCH (09:26)
[2018-11-23] MEDS: AMIODARONE HCL 200 MG TABLET PO SCH (09:26)
[2018-11-23] MEDS: APIXABAN 5 MG TABLET PO SCH ×2 (09:26→17:41)
[2018-11-23] MEDS: BUPROPION HCL 150MG SR TABLET PO SCH (09:26)
[2018-11-23] MEDS: LIDOCAINE 5% PATCH TOP SCH (09:27)
[2018-11-23] MEDS: POTASSIUM CHLORIDE 10MEQ TABLET SR PO SCH (13:17)
[2018-11-23] MEDS: GUAIFENESIN/CODEINE 100-10MG/5ML UDC PO PRN (19:23)
[2018-11-23 20:00] VITALS: BP 141/97
[2018-11-24] MEDS: METHYL SALICYLATE/MENTHOL CREAM 85GM TOP SCH ×4 (02:00→20:40)
[2018-11-24] MEDS: GUAIFENESIN/CODEINE 100-10MG/5ML UDC PO PRN ×2 (03:30→16:41)
[2018-11-24] MEDS: GABAPENTIN 100MG CAPSULE PO SCH ×3 (06:03→21:33)
[2018-11-24 08:05] VITALS: BP 118/67
[2018-11-24] MEDS ORDERED: AMLODIPINE 5MG TABLET PO SCH (09:00)
[2018-11-24] MEDS: AMIODARONE HCL 200 MG TABLET PO SCH (10:30)
[2018-11-24] MEDS: CARVEDILOL 3.125 MG TABLET PO SCH ×2 (10:31→20:40)
[2018-11-24] MEDS: ALLOPURINOL 100 MG TABLET PO SCH (10:31)
[2018-11-24] MEDS: LOSARTAN POTASSIUM 25 MG TABLET PO SCH (10:31)
[2018-11-24] MEDS: POTASSIUM CHLORIDE 10MEQ TABLET SR PO SCH (10:31)
[2018-11-24] MEDS: FUROSEMIDE 20MG TABLET PO SCH (10:31)
[2018-11-24] MEDS: BUPROPION HCL 150MG SR TABLET PO SCH (10:31)
[2018-11-24] MEDS: LIDOCAINE 5% PATCH TOP SCH (10:32)
[2018-11-24 20:00] VITALS: BP 135/77
[2018-11-24] MEDS: MUPIROCIN 2% OINT 22GM TOP SCH (20:41)
[2018-11-25] MEDS: METHYL SALICYLATE/MENTHOL CREAM 85GM TOP SCH ×4 (01:28→20:13)
[2018-11-25] MEDS: GUAIFENESIN/CODEINE 100-10MG/5ML UDC PO PRN (02:09)
[2018-11-25] MEDS: GABAPENTIN 100MG CAPSULE PO SCH ×3 (05:22→21:09)
[2018-11-25 06:27] LABS: EOSINOPHILS % 5.2 % (0.0-5.0); HEMATOCRIT. 35.7 % (42.0-52.0); HEMOGLOBIN. 11.9 g/dL (14.0-18.0); LYMPHOCYTES % 25.1 % (20.0-50.0); MEAN CORPUSCULAR HEMOGLOBIN 30.5 pg (28.0-32.0); MEAN CORPUSCULAR VOLUME 91.8 fL (80.0-94.0); MEAN PLATELET VOLUME 7.6 fl (7.4-10.4); MONOCYTES % 6.6 % (2.0-8.0); NEUTROPHILS % 62.1 % (40.0-76.0); PLATELET 230 x1000/uL (130-400); RED BLOOD CELL COUNT 3.88 mill/uL (4.7-6.1); RED CELL DISTRIBUTION WIDTH 15.8 % (11.6-14.6)
[2018-11-25 06:42] LABS: CHLORIDE 106 mEq/L (98-107)
[2018-11-25 08:05] VITALS: BP 137/74
[2018-11-25] MEDS: LOSARTAN POTASSIUM 25 MG TABLET PO SCH (08:21)
[2018-11-25] MEDS: ALLOPURINOL 100 MG TABLET PO SCH (08:21)
[2018-11-25] MEDS: CARVEDILOL 3.125 MG TABLET PO SCH ×2 (08:22→20:14)
[2018-11-25] MEDS: POTASSIUM CHLORIDE 10MEQ TABLET SR PO SCH (08:22)
[2018-11-25] MEDS: AMIODARONE HCL 200 MG TABLET PO SCH (08:22)
[2018-11-25] MEDS: FUROSEMIDE 20MG TABLET PO SCH (08:22)
[2018-11-25] MEDS: BUPROPION HCL 150MG SR TABLET PO SCH (08:22)
[2018-11-25] MEDS: LIDOCAINE 5% PATCH TOP SCH (08:22)
[2018-11-25] MEDS: AMLODIPINE 5MG TABLET PO SCH (08:23)
[2018-11-25] MEDS: MUPIROCIN 2% OINT 22GM TOP SCH ×2 (08:24→20:13)
[2018-11-25] MEDS ORDERED: HYDROCODONE/ACETAMINOPHEN 10/325MG TABLET PO PRN (14:45)
[2018-11-25 20:40] VITALS: BP 134/76
[2018-11-26] MEDS: METHYL SALICYLATE/MENTHOL CREAM 85GM TOP SCH ×4 (01:52→20:22)
[2018-11-26] MEDS: GUAIFENESIN/CODEINE 100-10MG/5ML UDC PO PRN ×2 (03:46→14:54)
[2018-11-26] MEDS: GABAPENTIN 100MG CAPSULE PO SCH ×3 (05:34→21:12)
[2018-11-26 07:00] VITALS: BP 117/66
[2018-11-26] MEDS: POTASSIUM CHLORIDE 10MEQ TABLET SR PO SCH (08:14)
[2018-11-26] MEDS: FUROSEMIDE 20MG TABLET PO SCH (08:14)
[2018-11-26] MEDS: BUPROPION HCL 150MG SR TABLET PO SCH (08:14)
[2018-11-26] MEDS: LOSARTAN POTASSIUM 25 MG TABLET PO SCH (08:14)
[2018-11-26] MEDS: AMIODARONE HCL 200 MG TABLET PO SCH (08:15)
[2018-11-26] MEDS: AMLODIPINE 5MG TABLET PO SCH (08:15)
[2018-11-26] MEDS: MUPIROCIN 2% OINT 22GM TOP SCH ×2 (08:16→20:22)
[2018-11-26] MEDS: CARVEDILOL 3.125 MG TABLET PO SCH ×2 (08:16→20:22)
[2018-11-26] MEDS: LIDOCAINE 5% PATCH TOP SCH (08:17)
[2018-11-26] MEDS: ALLOPURINOL 100 MG TABLET PO SCH (08:17)
[2018-11-26] MEDS ORDERED: ACETAMINOPHEN 325MG TABLET PO PRN (16:15)
[2018-11-26] MEDS ORDERED: HYDROCODONE/ACETAMINOPHEN 5/325MG TABLET PO PRN (16:15)
[2018-11-26 20:00] VITALS: BP 123/73
[2018-11-27] MEDS: METHYL SALICYLATE/MENTHOL CREAM 85GM TOP SCH ×3 (01:52→14:00)
[2018-11-27] MEDS: GABAPENTIN 100MG CAPSULE PO SCH ×2 (05:53→14:25)
[2018-11-27 07:00] VITALS: BP 123/77
[2018-11-27] MEDS: FUROSEMIDE 20MG TABLET PO SCH (08:06)
[2018-11-27] MEDS: BUPROPION HCL 150MG SR TABLET PO SCH (08:06)
[2018-11-27] MEDS: ALLOPURINOL 100 MG TABLET PO SCH (08:06)
[2018-11-27] MEDS: AMIODARONE HCL 200 MG TABLET PO SCH (08:06)
[2018-11-27] MEDS: MUPIROCIN 2% OINT 22GM TOP SCH (08:07)
[2018-11-27] MEDS: CARVEDILOL 3.125 MG TABLET PO SCH (08:07)
[2018-11-27] MEDS: POTASSIUM CHLORIDE 10MEQ TABLET SR PO SCH (08:07)
[2018-11-27] MEDS: LIDOCAINE 5% PATCH TOP SCH (08:37)
[2018-11-27 09:50] VITALS: BP 130/69
[2018-11-27] MEDS: LOSARTAN POTASSIUM 25 MG TABLET PO SCH (09:59)
[2018-11-27] MEDS: AMLODIPINE 5MG TABLET PO SCH (09:59)
== END 2018-11-27 19:30 | disposition home health service (06) | DRG 92 ==
PROVIDERS: ADMIT Physical Medicine & Rehabilitation Spinal Cord Injury Medicine; ATTEND Internal Medicine
DX: G92 Toxic encephalopathy (principal); I48.92 Unspecified atrial flutter; F33.1 Major depressive disorder, recurrent, moderate; I49.5 Sick sinus syndrome; Z95.0 Presence of cardiac pacemaker; I25.5 Ischemic cardiomyopathy; I50.9 Heart failure, unspecified; I11.0 Hypertensive heart disease with heart failure; I48.91 Unspecified atrial fibrillation; D64.9 Anemia, unspecified; I44.7 Left bundle-branch block, unspecified; I25.10 Atherosclerotic heart disease of native coronary artery without angina pectoris; E78.5 Hyperlipidemia, unspecified; E78.00 Pure hypercholesterolemia, unspecified; J44.9 Chronic obstructive pulmonary disease, unspecified; M10.9 Gout, unspecified; R26.9 Unspecified abnormalities of gait and mobility; I73.9 Peripheral vascular disease, unspecified; G89.4 Chronic pain syndrome; M19.90 Unspecified osteoarthritis, unspecified site; E55.9 Vitamin D deficiency, unspecified; M51.37 Other intervertebral disc degeneration, lumbosacral region; L73.8 Other specified follicular disorders; G54.6 Phantom limb syndrome with pain; L02.821 Furuncle of head [any part, except face]; Z89.611 Acquired absence of right leg above knee; Z91.81 History of falling; Z86.73 Personal history of transient ischemic attack (TIA), and cerebral infarction without residual deficits; Z79.899 Other long term (current) drug therapy; Z82.49 Family history of ischemic heart disease and other diseases of the circulatory system
CPT/HCPCS: 36415; 72100; 80048; 82306; 82607; 82728; 82746; 83036; 83540; 83550; 83735; 84100; 84134; 84153; 84443; 85651; 92523; 92610; 93005; 93970; 97110; 97116; 97163; 97166; 97530; 97535; 97542; G0515; G0103

== ENCOUNTER → 2019-05-19 | Outpatient (CLI) | payer MEDICARE, OTHER ==
[~2019-05-19] MED LIST changes: -BUPR100T6 PO; -DULO30CA2 PO; -GABA-531 PO; -LOSA1TAB37 PO
== END | disposition home or self-care (01) ==
LOC: RAD 10:55
PROVIDERS: ATTEND Specialist
DX: R05 Cough (principal); Z95.810 Presence of automatic (implantable) cardiac defibrillator
CPT/HCPCS: 71046